=== PATIENT | male | born 1975 | race Two or more races ===

== ENCOUNTER 2017-10-18 22:09 | Emergency (ER) | payer OTHER ==
[~2017-10-18] VITALS: Ht 152.4 cm; Wt 81.6 kg
--- NOTE | 2017-10-18 22:10 | NUR ---
PT [facility] "IN CUSTODY HERE FOR MEDICAL CLEARANCE FOR BG HI" PT AOX3 RR EVEN AND UNLABORED. NO SOB NOTED. NAD NOTED. NO NVD AT THIS TIME. PT NOT DIAPHORETIC. PT GOWNED AND PLACED ON MONITOR WAITING FOR MD GALLEGOS. NO S/S HYPERGLYCEMIA AT THIS TIME.
--- NOTE | 2017-10-18 22:20 | NUR ---
DR. NG AT BEDSIDE FOR EVAL.
[2017-10-18] MEDS ORDERED: INSULIN REGULAR, HUMAN 100 UNIT/ML 10 ML VIAL ONE (22:28)
[2017-10-18] MEDS ORDERED: INSULIN REGULAR, HUMAN 100 UNIT/ML 10 ML VIAL SQ ONE (22:30)
--- NOTE | 2017-10-18 22:33 | NUR ---
LAB AT BEDSIDE FOR BLOOD DRAW.
[2017-10-18 22:39] LABS: BASOPHILS # (AUTO) 0.1 /CMM (0.0-0.2); BASOPHILS % (AUTO) 1.6 % (0.0-2.0); EOSINOPHILS % (AUTO) 1.1 % (0.0-6.0); HEMATOCRIT 44 % (39-51); LYMPHOCYTES # (AUTO) 1.6 /CMM (0.8-4.8); LYMPHOCYTES % (AUTO) 18.8 % (20.0-44.0); MEAN CORPUSCULAR HGB CONC 35 g/dl (31.0-36.0); MEAN CORPUSCULAR VOLUME 86 fL (80-96); MONOCYTES # (AUTO) 0.6 /CMM (0.1-1.30); NEUTROPHILS # (AUTO) 5.9 /CMM (1.8-8.9); NEUTROPHILS % (AUTO) 71.5 % (43.0-81.0); PLATELET COUNT (AUTO) 323 /CMM (150-450); RED BLOOD CELL COUNT(AUTO) 5.06 MIL/uL (4.5-6.0); WHITE BLOOD COUNT (AUTO) 8.3 K/uL (4.3-11.0)
[2017-10-18 22:41] LABS: APPEARANCE,URINE CLEAR (CLEAR); BILIRUBIN,URINE NEGATIVE (NEGATIVE); BLOOD, URINE NEGATIVE Ery/uL (NEGATIVE); COLOR,URINE YELLOW (YELLOW); KETONES,URINE NEGATIVE (NEGATIVE); LEUKOCYTE ESTERASE ,URINE NEGATIVE (NEGATIVE); NITRITE, URINE NEGATIVE (NEGATIVE); PROTEIN,URINE NEGATIVE (NEGATIVE); UGLUCOSE 3+ mg/dL (NEGATIVE); UROBILINOGEN,URINE 0.2 EU/dL (0.2)
[2017-10-18 22:56] LABS: RBC,URINE 0-2 /HPF (0-2); WBC,URINE 0-2 /HPF (0-3)
[2017-10-18 22:57] LABS: BACTERIA,URINE Rare /HPF (None Seen); SQUAMOUS EPITHELIAL CELL,UR Rare /HPF (None Seen)
[2017-10-18 23:00] LABS: CALCIUM, SERUM 8.5 mg/dL (8.5-10.1); CREATININE 0.8 mg/dL (0.6-1.3); POTASSIUM 3.7 mmol/L (3.5-5.1)
--- NOTE | 2017-10-18 23:31 | NUR ---
AC[facility] 305, DR. NG MADE AWARE
--- NOTE | 2017-10-19 00:11 | NUR ---
Patient discharged in stable conditio under lapd custody Written and verbal after care instructions given. Patient verbalizes understanding of instruction. pt ambulatory to with steady gait.
[2017-10-19 00:12] VITALS: BP 118/72
== END 2017-10-19 00:13 | disposition home or self-care (01) ==
LOC: ER 22:10
DX: R73.9 Hyperglycemia, unspecified (principal)
CPT/HCPCS: 36415; 80048; 81001; 82962 ×4; 85025; 96372; 99284; A4606; J1815; Z7610; 81000-TC